=== PATIENT | female | born 1975 | race Asian ===

== ENCOUNTER 2017-05-21 09:40 | Inpatient (IN) | payer OTHER, SELFPAY ==
[~2017-05-21] VITALS: Ht 170.2 cm; Wt 68.9 kg
[2017-05-21] MEDS ORDERED: PREN-546 PO (09:52)
[2017-05-21] MEDS ORDERED: LACTATED RINGERS 1,000 ML IV SCH (09:53)
[2017-05-21 10:33] LABS: BASOPHILS # (AUTO) 0.1 K/uL (0.00-0.22); BASOPHILS % (AUTO) 1.1 % (0.0-2.0); EOSINOPHILS # (AUTO) 0.1 K/uL (0-0.4); EOSINOPHILS % (AUTO) 1.2 % (0.0-4.0); HEMATOCRIT 37.5 % (36-48); HEMOGLOBIN 12.7 g/dL (12.0-16.0); LYMPHOCYTES # (AUTO) 1.4 K/uL (2.5-16.5); MEAN CORPUSCULAR HEMOGLOBIN 32 pg (27-31); MEAN CORPUSCULAR HGB CONC 34 g/dL (33-37); MEAN CORPUSCULAR VOLUME 95 fL (80-94); MONOCYTES # (AUTO) 0.3 K/uL (0.8-1.0); MONOCYTES % (AUTO) 3.1 % (1.7-9.3); NEUTROPHILS # (AUTO) 7.3 K/uL (1.8-7.7); NEUTROPHILS % (AUTO) 79.6 % (42.2-75.2); RED BLOOD CELL COUNT(AUTO) 3.96 MIL/uL (4.20-5.40); RED CELL DISTRIBUTION WIDTH 12.9 % (11.6-13.7); WHITE BLOOD COUNT (AUTO) 9.2 K/uL (4.8-10.8)
[2017-05-21 10:33] LABS: APPEARANCE,URINE SL CLOUDY (CLEAR); BILIRUBIN,URINE NEGATIVE (NEGATIVE); BLOOD, URINE 3+ (NEGATIVE); COLOR,URINE YELLOW (YELLOW); LEUKOCYTE ESTERASE ,URINE TRACE (NEGATIVE); NITRITE, URINE NEGATIVE (NEGATIVE); PROTEIN,URINE TRACE (NEGATIVE); UGLUCOSE NEGATIVE (NEGATIVE); UROBILINOGEN,URINE 0.2 EU/dL (0.2 - 1)
[2017-05-21 10:35] LABS: PLATELET COUNT (AUTO) 134 K/uL (140-450)
[2017-05-21 10:39] VITALS: BP 107/61
[2017-05-21 10:40] LABS: RBC,URINE >100 /HPF (0-5)
[2017-05-21 10:41] LABS: BACTERIA,URINE OCCASSIONAL /HPF (None Seen)
[2017-05-21 10:50] LABS: HIV RAPID SCREEN NON-REACTIVE (NON REACTIV)
[2017-05-21] MEDS ORDERED: MORPHINE PRES FREE 10 MG/10 ML AMP IV ONE (11:05)
[2017-05-21] MEDS ORDERED: TERBUTALINE 1 MG/ML VIAL SUBQ ONE (11:28)
[2017-05-21] MEDS ORDERED: TERBUTALINE 1 MG/ML VIAL SUBQ SCH (11:30)
[2017-05-21] MEDS ORDERED: BUPIVACAINE-MPF 0.75% 10 ML VIAL INJ ONE (12:05)
[2017-05-21] MEDS ORDERED: ONDANSETRON 4 MG/2 ML VIAL IVP ONE (12:05)
[2017-05-21] MEDS ORDERED: TRIAMCINOLONE 10 MG/ML 5ML VIAL ONE (12:10)
[2017-05-21] MEDS ORDERED: OXYTOCIN 10 UNITS/ML VIAL ONE (12:10)
[2017-05-21] MEDS ORDERED: METHYLERGONOVINE 0.2 MG/ML AMP ONE (12:11)
[2017-05-21] MEDS ORDERED: ceFAZolin 1,000 MG VIAL IVP ONE (12:18)
[2017-05-21 12:20] LABS: RAPID PLASMA REAGIN NON-REACTIVE (Non Reactiv)
[2017-05-21] MEDS ORDERED: ONDANSETRON 4 MG/2 ML VIAL IVP PRN (12:45)
[2017-05-21] MEDS ORDERED: KETOROLAC 30 MG/ML VIAL IVP PRN (12:45)
[2017-05-21] MEDS ORDERED: diphenhydrAMINE 50 MG/ML VIAL IVP PRN (12:45)
[2017-05-21] MEDS ORDERED: NALOXONE 0.4 MG/ML VIAL IVP PRN ×2 (12:45)
[2017-05-21] MEDS ORDERED: OXYTOCIN 20 UNITS/LR PREMIX 1,000 ML IV SCH (12:45)
[2017-05-21] MEDS ORDERED: OXYTOCIN 20 UNITS/LR PREMIX 1,000 ML IV ONE (12:59)
[2017-05-21] MEDS ORDERED: HYDROcodone/APAP 5/325 MG 1 TAB TAB PO PRN (18:15)
[2017-05-21] MEDS ORDERED: oxyCODONE/APAP 5/325 MG 1 TAB TAB PO PRN (18:15)
[2017-05-21] MEDS ORDERED: IBUPROFEN 800 MG TAB PO PRN (18:15)
[2017-05-21] MEDS ORDERED: TEMAZEPAM 15 MG CAP PO PRN (18:15)
[2017-05-21] MEDS ORDERED: MEASLES, MUMPS, AND RUBELLA 1 VIAL SQVAC PRN (18:15)
[2017-05-21] MEDS ORDERED: METHYLERGONOVINE 0.2 MG/ML AMP IM PRN (18:15)
[2017-05-21] MEDS ORDERED: TRIMETHOBENZAMIDE 200 MG/2 ML SYR IM PRN (18:15)
[2017-05-21] MEDS: OXYTOCIN 20 UNITS/LR PREMIX 1,000 ML IV SCH (19:56)
[2017-05-21] MEDS: DOCUSATE SOD/SENNA 50/8.6 MG 1 TAB PO SCH (21:00)
[2017-05-22] MEDS: OXYTOCIN 20 UNITS/LR PREMIX 1,000 ML IV SCH (04:28)
[2017-05-22 06:36] LABS: BASOPHILS # (AUTO) 0.1 K/uL (0.00-0.22); BASOPHILS % (AUTO) 0.5 % (0.0-2.0); EOSINOPHILS # (AUTO) 0.1 K/uL (0-0.4); EOSINOPHILS % (AUTO) 1.2 % (0.0-4.0); HEMATOCRIT 34.4 % (36-48); HEMOGLOBIN 11.4 g/dL (12.0-16.0); LYMPHOCYTES # (AUTO) 1.5 K/uL (2.5-16.5); LYMPHOCYTES % (AUTO) 12.5 % (20.5-51.1); MEAN CORPUSCULAR HEMOGLOBIN 31 pg (27-31); MEAN CORPUSCULAR HGB CONC 33 g/dL (33-37); MEAN CORPUSCULAR VOLUME 95 fL (80-94); MONOCYTES # (AUTO) 0.4 K/uL (0.8-1.0); MONOCYTES % (AUTO) 3.4 % (1.7-9.3); NEUTROPHILS # (AUTO) 9.6 K/uL (1.8-7.7); NEUTROPHILS % (AUTO) 82.4 % (42.2-75.2); PLATELET COUNT (AUTO) 113 K/uL (140-450); RED BLOOD CELL COUNT(AUTO) 3.64 MIL/uL (4.20-5.40); RED CELL DISTRIBUTION WIDTH 12.6 % (11.6-13.7); WHITE BLOOD COUNT (AUTO) 11.7 K/uL (4.8-10.8)
--- NOTE | 2017-05-22 10:03 | NUR ---
PATIENT HAS BEEN SCREENED AND CATEGORIZED LOW NUTRITION RISK. PATIENT WILL BE SEEN WITHIN 7 DAYS OF ADMISSION. 05/27/[address]
[2017-05-22] MEDS: SIMETHICONE 80 MG TAB.CHEW PO SCH (21:25)
[2017-05-22] MEDS: DOCUSATE SOD/SENNA 50/8.6 MG 1 TAB PO SCH (21:25)
[2017-05-23] MEDS: SIMETHICONE 80 MG TAB.CHEW PO SCH ×2 (10:23→20:37)
[2017-05-23] MEDS ORDERED: HYDROCORTISONE 0.5% CRM 30 GM TUBE TP SCH (17:00)
[2017-05-23] MEDS: DOCUSATE SOD/SENNA 50/8.6 MG 1 TAB PO SCH (20:36)
[2017-05-24] MEDS ORDERED: IBUP-2213 PO (10:21)
== END 2017-05-24 14:00 | disposition home or self-care (01) | DRG 540 ==
LOC: MLD 09:40 → MFCC 15:17
PROVIDERS: ADMIT Obstetrics & Gynecology; ATTEND Obstetrics & Gynecology
PROC: 10D00Z1 Extraction of Products of Conception, Low, Open Approach (ICD-10-PCS; principal; 2017-05-21 12:00)
PROC: 3E0234Z Introduction of Serum, Toxoid and Vaccine into Muscle, Percutaneous Approach (ICD-10-PCS; 2017-05-22)
DX: O34.211 Maternal care for low transverse scar from previous cesarean delivery (principal); O09.523 Supervision of elderly multigravida, third trimester; O89.4 Spinal and epidural anesthesia-induced headache during the puerperium; Z37.0 Single live birth; O09.293 Supervision of pregnancy with other poor reproductive or obstetric history, third trimester; Z3A.38 38 weeks gestation of pregnancy; Z23 Encounter for immunization
CPT/HCPCS: 36415; 51702; 81001; 85025; 86592; 86886; 86900; 86901; 87086; 90715; J0690; J2210; J2270; J2405; J2590; J3105; J3301; J3490; J7060; J7120